=== PATIENT | female | born 1970 | race Caucasian/White ===

== ENCOUNTER → 2017-04-30 | Outpatient (CLI) | payer OTHER ==
[~2017-04-30] MED LIST: ALEN70; CEPH500 PO; CITA20; CLON.5; DOCU100 PO; DULO30; FENT25TP; FENT75TP; FENT75TP TOP; HYDACE5; OXYACE5T PO; OXYC10ER PO; PROM25 PO; RXPROM25 PO; TRAM50; TRAM50 PO; TRAZ100
[2017-04-30 13:28] LABS: Calcium, Urine 14.2 mg/dL (2.0-17.5); Calcium, Urine Calculation 326.6 mg/24hrs (42.0-353.0)
== END | disposition home or self-care (01) ==
LOC: LAB 06:50
PROVIDERS: Internal Medicine Endocrinology, Diabetes & Metabolism
DX: M81.0 Age-related osteoporosis without current pathological fracture (principal)
CPT/HCPCS: 81050; 82340

== ENCOUNTER → 2017-07-15 | Outpatient (CLI) | payer OTHER | LOC: LAB EV 14:15 | DX: R21 Rash and other nonspecific skin eruption (principal) | CPT/HCPCS: 87070; 87205 ==

== ENCOUNTER → 2017-09-09 | Outpatient (CLI) | payer OTHER ==
[2017-09-09 10:26] LABS: BASOPHILS ABSOLUTE AUTO 0.02 K/mm3 (0.00-0.23); BASOPHILS PERCENT AUTO 0 % (0-2); EOSINOPHILS ABSOLUTE AUTO 0.07 K/mm3 (0.00-0.68); EOSINOPHILS PERCENT AUTO 2 % (0-6); Hematocrit 41.7 % (33.0-51.0); Hemoglobin 14.1 g/dL (11.5-16.0); IMMATURE GRAN ABSOLUTE AUTO 0.01 K/mm3 (0.00-0.10); IMMATURE GRAN PERCENT AUTO 0 % (0-1); LYMPHOCYTES ABSOLUTE AUTO 1.22 K/mm3 (0.84-5.20); LYMPHOCYTES PERCENT AUTO 27 % (21-46); MONOCYTES ABSOLUTE AUTO 0.33 K/mm3 (0.16-1.47); MONOCYTES PERCENT AUTO 7 % (4-13); Mean Corpuscular HGB 33.4 pg (26.0-34.0); Mean Corpuscular HGB Conc 33.8 g/dL (31.5-36.5); Mean Corpuscular Volume 99 fL (80-100); Mean Platelet Volume 10.4 fL (9.1-12.4); NEUTROPHILS ABSOLUTE AUTO 2.84 K/mm3 (1.96-9.15); NEUTROPHILS PERCENT AUTO 63 % (41-73); Platelet Count 201 K/mm3 (150-400); RDW Coefficient Variation 13.2 % (11.7-14.2); RDW Standard Deviation 47.5 fL (35.1-46.3); Red Blood Cell Count 4.22 M/mm3 (3.80-5.20); White Blood Cell Count 4.49 K/mm3 (4.00-11.30)
[2017-09-09 10:59] LABS: Alanine Aminotransfer (ALT/SGP 30 U/L (12-78); Albumin, Blood 4.1 g/dL (3.4-5.0); Albumin/Globulin Ratio 1.1 (0.8-1.8); Alk Phos 60 U/L (40-126); Anion Gap 8 mmol/L (6-16); Aspartate Aminotrans (AST/SGOT 28 U/L (12-37); Bilirubin, Total 0.5 mg/dL (0.1-1.0); Blood Urea Nitrogen 15 mg/dL (8-24); Bun/Creatinine Ratio 18.3 (12.0-20.0); CO2, Blood 29 mmol/L (21-32); Calcium, Blood 9.2 mg/dL (8.5-10.1); Chloride, Blood 102 mmol/L (98-108); Creatinine, Blood 0.82 mg/dL (0.40-1.00); Globulin, Blood 3.7 g/dL (2.2-4.0); Glomerular Filtration Rate >60 (60-); Glucose, Blood 121 mg/dL (70-99); Potassium, Blood 4.5 mmol/L (3.5-5.5); Sodium, Blood 139 mmol/L (136-145); Total Protein, Blood 7.8 g/dL (6.4-8.2)
[2017-09-09 11:00] LABS: Troponin I <0.017 ng/mL (0.000-0.040)
[2017-09-09 11:57] LABS: Free Thyroxine 0.96 ng/dL (0.70-1.60); Thyroid Stimulating Hormone 1.377 uIU/mL (0.360-4.800)
== END | disposition home or self-care (01) ==
LOC: LAB SHORT 10:07 → LAB EV 10:07
PROVIDERS: Physician Assistant
DX: Z53.9 Procedure and treatment not carried out, unspecified reason (principal)
CPT/HCPCS: 80053; 82607; 82746; 84439; 84443; 84484; 85025; 85379

== ENCOUNTER 2018-08-05 09:56 | Day surgery (SDC) | payer OTHER ==
[~2018-08-05] VITALS: Ht 165.1 cm; Wt 73.4 kg
[~2018-08-05 09:56] MED LIST changes: +CLON2; +CYCL10; +Celexa10 MG; +DOXE10; +Imitrex100 MG; +THERA1 EACH
[2018-08-05] MEDS ORDERED: OXYC10ER (10:40)
== END 2018-08-05 11:37 | disposition home or self-care (01) ==
LOC: ORSCSDS 09:56
PROVIDERS: Internal Medicine Gastroenterology
PROC: 0DJD8ZZ Inspection of Lower Intestinal Tract, Via Natural or Artificial Opening Endoscopic (ICD-10-PCS; principal; 2018-08-05 11:15)
DX: K62.5 Hemorrhage of anus and rectum (principal); Z80.0 Family history of malignant neoplasm of digestive organs; F32.9 Major depressive disorder, single episode, unspecified; Z79.899 Other long term (current) drug therapy
CPT/HCPCS: J2704; J7120

== ENCOUNTER 2019-01-23 10:32 | Emergency (ER) | payer OTHER ==
[~2019-01-23] VITALS: Ht 165.1 cm; Wt 69.0 kg
[~2019-01-23 10:32] MED LIST changes: +OXYC10ER
[2019-01-23] MEDS ORDERED: Monodox100 MG PO (10:51)
[2019-01-23] MEDS ORDERED: IBUP800 PO (10:51)
== END 2019-01-23 10:57 | disposition home or self-care (01) ==
LOC: ER 10:32
DX: J02.9 Acute pharyngitis, unspecified (principal); L03.314 Cellulitis of groin; Z79.899 Other long term (current) drug therapy; Z87.891 Personal history of nicotine dependence
CPT/HCPCS: 99282

== ENCOUNTER → 2019-02-01 | Outpatient (CLI) | payer OTHER ==
[~2019-02-01] MED LIST changes: +IBUP800 PO; +Monodox100 MG PO
[2019-02-01 12:48] LABS: BASOPHILS ABSOLUTE AUTO 0.03 K/mm3 (0.00-0.23); BASOPHILS PERCENT AUTO 1 % (0-2); EOSINOPHILS ABSOLUTE AUTO 0.05 K/mm3 (0.00-0.68); EOSINOPHILS PERCENT AUTO 1 % (0-6); Hematocrit 40.9 % (33.0-51.0); Hemoglobin 13.2 g/dL (11.5-16.0); IMMATURE GRAN ABSOLUTE AUTO 0.02 K/mm3 (0.00-0.10); IMMATURE GRAN PERCENT AUTO 0 % (0-1); LYMPHOCYTES ABSOLUTE AUTO 2.21 K/mm3 (0.84-5.20); LYMPHOCYTES PERCENT AUTO 35 % (21-46); MONOCYTES ABSOLUTE AUTO 0.36 K/mm3 (0.16-1.47); MONOCYTES PERCENT AUTO 6 % (4-13); Mean Corpuscular HGB 32.9 pg (26.0-34.0); Mean Corpuscular HGB Conc 32.3 g/dL (31.5-36.5); Mean Corpuscular Volume 102 fL (80-100); Mean Platelet Volume 10.1 fL (9.1-12.4); NEUTROPHILS ABSOLUTE AUTO 3.63 K/mm3 (1.96-9.15); NEUTROPHILS PERCENT AUTO 58 % (41-73); Platelet Count 238 K/mm3 (150-400); RDW Coefficient Variation 13.2 % (11.7-14.2); RDW Standard Deviation 50.2 fL (35.1-46.3); Red Blood Cell Count 4.01 M/mm3 (3.80-5.20)
== END | disposition home or self-care (01) ==
LOC: LAB SHORT 11:54 → LAB 11:54
PROVIDERS: Family Medicine
DX: M25.572 Pain in left ankle and joints of left foot (principal)
CPT/HCPCS: 84550; 85025; 85651

== ENCOUNTER → 2019-05-18 | Outpatient (CLI) | payer OTHER ==
[2019-05-18 19:00] LABS: U Amphetamine Screen Not Detected; U Barbituate Screen Not Detected; U Benzodiazapine Screen DETECTED; U Buprenorphine Screen Not Detected; U Cannabinoids Screen DETECTED; U Cocaine Screen Not Detected; U Methadone Screen Not Detected; U Methamphetamine Screen Not Detected; U Opiates Screen Not Detected; U Phencyclidine Screen Not Detected
[2019-05-18 19:01] LABS: U Oxycodone Screen Not Detected; U Propoxyphene Screen Not Detected
== END ==
LOC: LAB SHORT 12:00 → LAB 12:00
PROVIDERS: Registered Nurse Psychiatric/Mental Health
DX: Z51.81 Encounter for therapeutic drug level monitoring (principal); Z79.899 Other long term (current) drug therapy

== ENCOUNTER 2020-04-17 07:24 | Emergency (ER) | payer OTHER ==
[~2020-04-17] VITALS: Ht 162.6 cm; Wt 71.2 kg
[~2020-04-17 07:24] MED LIST changes: +BRINTELLIX5 MG PO; +BUSP10 PO; +CEFP200 PO; +Flomax0.4 MG PO; +HYDPAM100 PO; +HYDR1TAB94 PO; +ONDA4ODT MM
[2020-04-17] MEDS ORDERED: Voltaren100 GM TOP (07:53)
[2020-04-17] MEDS ORDERED: ELIQUIS5 MG PO (07:58)
== END 2020-04-17 08:05 | disposition home or self-care (01) ==
LOC: ER 07:24
DX: M76.52 Patellar tendinitis, left knee (principal); M76.51 Patellar tendinitis, right knee; F17.210 Nicotine dependence, cigarettes, uncomplicated; Z79.01 Long term (current) use of anticoagulants; Z79.899 Other long term (current) drug therapy; Z86.718 Personal history of other venous thrombosis and embolism
CPT/HCPCS: 99283

== ENCOUNTER 2020-12-04 19:12 | Emergency (ER) | payer OTHER ==
[~2020-12-04] VITALS: Ht 165.1 cm; Wt 59.0 kg
[~2020-12-04 19:12] MED LIST changes: +ELIQUIS5 MG PO; +Voltaren100 GM TOP
== END 2020-12-05 00:43 | disposition home or self-care (01) ==
LOC: ER 19:12
DX: S01.312A Laceration without foreign body of left ear, initial encounter (principal); M25.512 Pain in left shoulder; F17.210 Nicotine dependence, cigarettes, uncomplicated; Z23 Encounter for immunization; W18.30XA Fall on same level, unspecified, initial encounter; Y92.828 Other wilderness area as the place of occurrence of the external cause
CPT/HCPCS: 12002; 70450; 72125; 73030; 90471; 90714; 93005; 93010; 96372; 99284-25; A9270; J1885

== ENCOUNTER 2021-01-27 09:50 | Day surgery (SDC) | payer OTHER ==
[~2021-01-27] VITALS: Ht 165.1 cm; Wt 57.1 kg
--- NOTE | 2021-01-27 11:53 | NUR ---
01/27/21 Latanya3 Aretha Little History, Chart, Medications and Allergies reviewed before start of procedure. Patient confirms NPO status and agrees with scheduled surgery. 3-LEAD EKG REVIEWED WITH PHYSICIAN PRIOR TO START OF PROCEDURE. MONITOR INTACT WITH CONTINUOUS PULSE OXIMETRY AND INTERMITTENT BP. PATIENT DETERMINED TO BE ASA APPROPRIATE FOR PROPOFOL SEDATION PRIOR TO START OF PROCEDURE BY DR. BROCK. NO HCG INDICATED PRE-PROCEDURE SECONDARY TO HX HYSTERECTOMY.
--- NOTE | 2021-01-27 13:00 | NUR ---
Patient up to Ambulate independently. Gait steady. Discharge instructions reviewed with patient. Patient verbalizes understanding. Copy given to patient to take home. Patient States Post-Procedure ride home has been arranged. Discharged via wheelchair to private car for ride home.
== END 2021-01-27 13:00 | disposition home or self-care (01) ==
LOC: ORSCMMR 09:50 → ORSCSDS 11:00 → ORSCMMR 13:00
PROVIDERS: Internal Medicine Gastroenterology
PROC: 0DB98ZX Excision of Duodenum, Via Natural or Artificial Opening Endoscopic, Diagnostic (ICD-10-PCS; principal; 2021-01-27 11:00)
PROC: 0DB68ZX Excision of Stomach, Via Natural or Artificial Opening Endoscopic, Diagnostic (ICD-10-PCS; principal; 2021-01-27 11:00)
PROC: 0DBE8ZX Excision of Large Intestine, Via Natural or Artificial Opening Endoscopic, Diagnostic (ICD-10-PCS; principal; 2021-01-27 11:00)
DX: R11.2 Nausea with vomiting, unspecified (principal); K52.9 Noninfective gastroenteritis and colitis, unspecified; R19.7 Diarrhea, unspecified; R63.4 Abnormal weight loss; K44.9 Diaphragmatic hernia without obstruction or gangrene; K29.70 Gastritis, unspecified, without bleeding; K57.30 Diverticulosis of large intestine without perforation or abscess without bleeding; K64.8 Other hemorrhoids; Z79.899 Other long term (current) drug therapy
CPT/HCPCS: 88305; 88342; J2405; J2704; J7120

== ENCOUNTER 2022-08-18 08:38 | Day surgery (SDC) | payer OTHER ==
[~2022-08-18] VITALS: Ht 160 cm; Wt 66.3 kg
[~2022-08-18 08:38] MED LIST changes: +CLON1 PO; +Cyclobenzaprine5 MG PO; +FLUTICASONE P15.8 M1; +HYDPAM50; +MIRT15 PO; +NAPR500 PO; +OMEP20ER PO; +PRAZ2 PO; +Percocet 5-3251 EACH PO; +TRAZ100 PO; +ZYRTEC10 M2 PO
--- NOTE | 2022-08-18 09:34 | NUR ---
08/18/22 0934 Sushma Bonner CALL LIGHT WITHIN REACH.
--- NOTE | 2022-08-18 10:55 | NUR ---
08/18/22 1055 Vikki Horner BLOCK COMPLETE AT OPSITE IN OR BY DR VASQUEZ AND DR KAMINSKI. PT AWAKE. TOLERATED WELL. VSS.
--- NOTE | 2022-08-18 12:16 | NUR ---
08/18/22 1216 Eda Hernandez PT PLACED ON 10L O2 VIA FT UPON ARRIVAL TO STEPDOWN FOR O2 SATS 90-94%. TRIAL OF O2 DOWN TO 5L VIA FT AND PT MAINTAINED O2 SATS AT 99-100. TRIAL ON RA AND SATS MAINTAINING 97-100%.
--- NOTE | 2022-08-18 13:03 | NUR ---
08/18/22 1303 STEFF SY PT C/O INCREASED NAUSEA. STILL HAS HEADACHE BUT STATES THAT SHE DOES NOT GET NAUSEATED BY H.A.- DENIES USE OF CAFFIENE
[2022-08-18 13:10] VITALS: BP 139/76
== END 2022-08-18 13:25 | disposition home or self-care (01) ==
LOC: ORSCSDS 08:38
PROVIDERS: Orthopaedic Surgery
PROC: 0PSB04Z Reposition Left Clavicle with Internal Fixation Device, Open Approach (ICD-10-PCS; principal; 2022-08-18 10:00)
DX: S42.032A Displaced fracture of lateral end of left clavicle, initial encounter for closed fracture (principal); F32.A Depression, unspecified; F41.9 Anxiety disorder, unspecified; M79.7 Fibromyalgia; K21.9 Gastro-esophageal reflux disease without esophagitis; F43.10 Post-traumatic stress disorder, unspecified; Z87.891 Personal history of nicotine dependence; Z79.899 Other long term (current) drug therapy
CPT/HCPCS: C1713; J0171; J0690; J1100; J1885; J2250; J2405; J2704; J2765; J2795; J3010; J7040; J7120

== ENCOUNTER 2022-09-15 11:49 | Emergency (ER) | payer OTHER ==
[~2022-09-15] VITALS: Ht 160 cm; Wt 62.6 kg
[2022-09-15 12:05] VITALS: BP 129/99
== END 2022-09-15 12:50 | disposition home or self-care (01) ==
LOC: ER 11:49
DX: M79.605 Pain in left leg (principal); F17.210 Nicotine dependence, cigarettes, uncomplicated; Z79.899 Other long term (current) drug therapy; Z88.8 Allergy status to other drugs, medicaments and biological substances
CPT/HCPCS: 93971

== ENCOUNTER 2022-09-30 10:49 | Day surgery (SDC) | payer OTHER ==
[2022-09-30] VITALS (9 sets, daily range): BP systolic 103–127; BP diastolic 66–86
[~2022-09-30] VITALS: Ht 160 cm; Wt 63.9 kg
[~2022-09-30 10:49] MED LIST changes: +BRINTELLIX20 MG PO; +CALCIUM PO; +Flonase 0.05% N16 GM; -HYDPAM50; +HYDPAM50 PO; +MAGNESIUM; +OXAYDO5 M1 PO; +VITAMIN D2
--- NOTE | 2022-09-30 15:17 | NUR ---
DISCHARGE NOTE PT A&OX4, BREATHING RA, NO DISTRESS, TOLERATING PO FLUIDS AND FOOD. BOYFRIEND AT BEDSIDE. PT CHATTING C STAFF. PAIN RX SENT WITH HOA TO PHARMACY PRIOR TO SURGERY. Discharge instructions reviewed with patient. Patient verbalizes understanding. Copy given to patient to take home.PT ABLE TO DRESS INDEPENDENTLY C RN AT BEDSIDE. PT AMBULATED TO INDEPENDENTLY C RN STANDBY AND VOIDED. Dressing to procedure site clean, dry, intact with no visible drainage, swelling, erythema or bruising noted.ICE APPLIED TO SURGICAL SITE. Discharged via wheelchair to private car for ride home.
== END 2022-09-30 15:15 | disposition home or self-care (01) ==
LOC: ORSCMMR 10:49 → ORD 13:15 → ORSCMMR 15:15
PROVIDERS: Orthopaedic Surgery
PROC: 0PPB04Z Removal of Internal Fixation Device from Left Clavicle, Open Approach (ICD-10-PCS; principal; 2022-09-30 12:30)
DX: T84.9XXA Unspecified complication of internal orthopedic prosthetic device, implant and graft, initial encounter (principal); Z96.9 Presence of functional implant, unspecified; Z79.899 Other long term (current) drug therapy
CPT/HCPCS: 87071; 87075; 87205; A9270; J0690; J1100; J1170; J2250; J2405; J2704; J2795; J3010; J7120

== ENCOUNTER 2023-03-17 10:31 | Emergency (ER) | payer OTHER ==
[~2023-03-17] VITALS: Ht 160 cm; Wt 63.5 kg
[2023-03-17] MEDS ORDERED: CALCITONIN-SAL3.7 M5 (11:07)
[2023-03-17] MEDS ORDERED: Ventolin/Prove6.7 GM INH (11:07)
[2023-03-17 12:45] LABS: BASOPHILS ABSOLUTE AUTO 0.03 K/mm3 (0.00-0.23); BASOPHILS PERCENT AUTO 1 % (0-2); EOSINOPHILS ABSOLUTE AUTO 0.03 K/mm3 (0.00-0.68); EOSINOPHILS PERCENT AUTO 1 % (0-6); Hematocrit 41.9 % (33.0-51.0); Hemoglobin 14.1 g/dL (11.5-16.0); IMMATURE GRAN ABSOLUTE AUTO 0.01 K/mm3 (0.00-0.10); IMMATURE GRAN PERCENT AUTO 0 % (0-1); LYMPHOCYTES ABSOLUTE AUTO 1.85 K/mm3 (0.84-5.20); LYMPHOCYTES PERCENT AUTO 30 % (21-46); MONOCYTES ABSOLUTE AUTO 0.42 K/mm3 (0.16-1.47); MONOCYTES PERCENT AUTO 7 % (4-13); Mean Corpuscular HGB 34.5 pg (26.0-34.0); Mean Corpuscular HGB Conc 33.7 g/dL (31.5-36.5); Mean Corpuscular Volume 102 fL (80-100); NEUTROPHILS PERCENT AUTO 62 % (41-73); Platelet Count 256 K/mm3 (150-400); RDW Coefficient Variation 12.6 % (11.7-14.2); RDW Standard Deviation 46.9 fL (35.1-46.3); Red Blood Cell Count 4.09 M/mm3 (3.80-5.20); White Blood Cell Count 6.14 K/mm3 (4.00-11.30)
[2023-03-17 13:03] VITALS: BP 132/78
[2023-03-17 13:10] LABS: Albumin, Blood 4.2 g/dL (3.4-5.0); Albumin/Globulin Ratio 1.1 (0.8-1.8); Bilirubin, Total 0.4 mg/dL (0.1-1.0); Calcium, Blood 9.5 mg/dL (8.5-10.1); Creatinine, Blood 0.69 mg/dL (0.40-1.00); Globulin, Blood 3.7 g/dL (2.2-4.0); Potassium, Blood 3.9 mmol/L (3.5-5.5); Total Protein, Blood 7.9 g/dL (6.4-8.2)
== END 2023-03-17 13:04 | disposition home or self-care (01) ==
LOC: ER 10:31
PROVIDERS: Emergency Medicine
DX: M79.662 Pain in left lower leg (principal); M79.602 Pain in left arm; Z88.8 Allergy status to other drugs, medicaments and biological substances; Z79.899 Other long term (current) drug therapy; F17.210 Nicotine dependence, cigarettes, uncomplicated
CPT/HCPCS: 80053; 85025; 93971; 96372; 99284-25; J1885

== ENCOUNTER → 2023-08-17 | Outpatient (CLI) | payer OTHER ==
[~2023-08-17] MED LIST changes: +CALCITONIN-SAL3.7 M5; +Ventolin/Prove6.7 GM INH
[2023-08-17 19:13] LABS: U Amphetamine Screen Not Detected; U Barbituate Screen Not Detected; U Benzodiazapine Screen Not Detected; U Buprenorphine Screen Not Detected; U Cannabinoids Screen DETECTED; U Cocaine Screen Not Detected; U Methadone Screen Not Detected; U Methamphetamine Screen Not Detected; U Opiates Screen DETECTED; U Oxycodone Screen DETECTED; U Phencyclidine Screen Not Detected
== END | disposition home or self-care (01) ==
LOC: LAB 17:26 → LAB SHORT 17:26
PROVIDERS: Internal Medicine Hematology & Oncology
DX: Z51.81 Encounter for therapeutic drug level monitoring (principal); Z79.899 Other long term (current) drug therapy

== ENCOUNTER → 2023-10-15 | Outpatient (CLI) | payer OTHER ==
[~2023-10-15] MED LIST changes: +MUPIROCIN1 G1 TOP
[2023-10-15 16:00] LABS: U Amphetamine Screen DETECTED; U Cannabinoids Screen DETECTED
[2023-10-15 16:01] LABS: U Barbituate Screen Not Detected; U Benzodiazapine Screen Not Detected; U Buprenorphine Screen Not Detected; U Cocaine Screen Not Detected; U Methadone Screen Not Detected; U Methamphetamine Screen Not Detected; U Opiates Screen Not Detected; U Oxycodone Screen DETECTED; U Phencyclidine Screen Not Detected
== END | disposition home or self-care (01) ==
LOC: LAB 13:19 → LAB SHORT 13:19
PROVIDERS: Internal Medicine Hematology & Oncology
DX: M54.6 Pain in thoracic spine (principal)

== ENCOUNTER 2023-11-13 08:52 | Emergency (ER) | payer OTHER ==
[~2023-11-13] VITALS: Ht 160 cm; Wt 56.2 kg
[~2023-11-13 08:52] MED LIST changes: -MUPIROCIN1 G1 TOP
[2023-11-13 09:11] VITALS: BP 130/93
[2023-11-13] MEDS ORDERED: MUPIROCIN1 G1 TOP (09:56)
== END 2023-11-13 10:06 | disposition home or self-care (01) ==
LOC: ER 08:52
DX: H00.034 Abscess of left upper eyelid (principal); F43.10 Post-traumatic stress disorder, unspecified; Z87.891 Personal history of nicotine dependence; Z79.899 Other long term (current) drug therapy; Z88.8 Allergy status to other drugs, medicaments and biological substances
CPT/HCPCS: 99283

== ENCOUNTER → 2023-12-10 | Outpatient (CLI) | payer OTHER ==
[~2023-12-10] MED LIST changes: +MUPIROCIN1 G1 TOP
[2023-12-10 11:45] LABS: U Amphetamine Screen DETECTED; U Cannabinoids Screen DETECTED
[2023-12-10 11:46] LABS: U Barbituate Screen Not Detected; U Benzodiazapine Screen Not Detected; U Buprenorphine Screen Not Detected; U Cocaine Screen Not Detected; U Methadone Screen Not Detected; U Methamphetamine Screen Not Detected; U Opiates Screen Not Detected; U Oxycodone Screen Not Detected; U Phencyclidine Screen Not Detected
== END ==
LOC: LAB SHORT 10:20 → LAB 10:20
PROVIDERS: Internal Medicine Hematology & Oncology
DX: Z51.81 Encounter for therapeutic drug level monitoring (principal); Z79.899 Other long term (current) drug therapy

== ENCOUNTER → 2023-12-15 | Outpatient (CLI) | payer OTHER | LOC: LAB SHORT 13:30 → LAB 13:30 | DX: D75.89 Other specified diseases of blood and blood-forming organs (principal) | CPT/HCPCS: 82607; 82746 ==

== ENCOUNTER → 2024-01-14 | Outpatient (CLI) | payer OTHER ==
[2024-01-14 12:35] LABS: U Amphetamine Screen DETECTED; U Barbituate Screen Not Detected; U Benzodiazapine Screen Not Detected; U Buprenorphine Screen Not Detected; U Cannabinoids Screen DETECTED; U Cocaine Screen Not Detected; U Methadone Screen Not Detected; U Methamphetamine Screen Not Detected; U Opiates Screen Not Detected; U Phencyclidine Screen Not Detected
[2024-01-14 12:37] LABS: U Oxycodone Screen DETECTED
== END ==
LOC: LAB 10:37 → LAB SHORT 10:37
PROVIDERS: Internal Medicine Hematology & Oncology
DX: M54.50 Low back pain, unspecified (principal); G89.4 Chronic pain syndrome

== ENCOUNTER → 2024-05-02 | Outpatient (CLI) | payer MEDICARE, OTHER | LOC: LAB SHORT 13:43 → LAB 13:43 | DX: R63.4 Abnormal weight loss (principal) | CPT/HCPCS: 85651; 86140 ==

== ENCOUNTER → 2024-05-12 | Outpatient (CLI) | payer MEDICARE, OTHER ==
[2024-05-12 11:40] LABS: U Amphetamine Screen DETECTED; U Barbituate Screen Not Detected; U Benzodiazapine Screen Not Detected; U Buprenorphine Screen Not Detected; U Cannabinoids Screen DETECTED; U Cocaine Screen Not Detected; U Methadone Screen Not Detected; U Methamphetamine Screen Not Detected; U Opiates Screen Not Detected; U Oxycodone Screen DETECTED; U Phencyclidine Screen Not Detected
== END | disposition home or self-care (01) ==
LOC: LAB SHORT 09:22 → LAB 09:22
PROVIDERS: Internal Medicine Hematology & Oncology
DX: Z51.81 Encounter for therapeutic drug level monitoring (principal); Z79.899 Other long term (current) drug therapy

== ENCOUNTER 2024-08-14 09:57 | Day surgery (SDC) | payer MEDICARE, OTHER ==
[~2024-08-14] VITALS: Ht 157.5 cm; Wt 46.3 kg
[~2024-08-14 09:57] MED LIST changes: +NS 500 ML IV ONE
[2024-08-14] MEDS ORDERED: FentaNYL Citrate 50 MCG/ML 2 ML Injection ONE (10:11)
[2024-08-14] MEDS ORDERED: Midazolam HCl 1MG / ML 2ML Vial ONE (10:12)
[2024-08-14] MEDS ORDERED: NS 500 ML IV ONE (10:55)
--- NOTE | 2024-08-14 11:02 | NUR ---
08/14/24 [address] JAMES WILL DO INJECTION BACK THERE
[2024-08-14] MEDS ORDERED: Ondansetron HCl 2 MG / ML 2ML Vial ONE (11:04)
[2024-08-14] MEDS ORDERED: Lidocaine 1%-Epineph 1:200000 30 ML SDV INJ ONE (11:14)
[2024-08-14] MEDS ORDERED: Sodium Bicarb 8.4% Inj 1 MEQ/ML 10ML Vial XX ONE (11:14)
[2024-08-14] MEDS ORDERED: propofoL 20 ML IV ONE (11:22)
--- NOTE | 2024-08-14 12:20 | NUR ---
08/14/24 1220 Sang Phelps PT INSTRUCTED MULTIPLE TIMES TO REMAIN NWB, PER DR. HOLGER Rai
[2024-08-14 12:21] VITALS: BP 111/67
== END 2024-08-14 12:05 | disposition home or self-care (01) ==
LOC: ORSCSDS 09:57
PROVIDERS: Orthopaedic Surgery
PROC: 0LN70ZZ Release Right Hand Tendon, Open Approach (ICD-10-PCS; principal; 2024-08-14 11:30)
PROC: 0HBQXZZ Excision of Finger Nail, External Approach (ICD-10-PCS; principal; 2024-08-14 11:30)
DX: M65.311 Trigger thumb, right thumb (principal); L60.9 Nail disorder, unspecified; K21.9 Gastro-esophageal reflux disease without esophagitis; F32.A Depression, unspecified; F43.10 Post-traumatic stress disorder, unspecified; Z87.891 Personal history of nicotine dependence; Z79.899 Other long term (current) drug therapy
CPT/HCPCS: J2250; J2405; J2704; J3010; J7040

== ENCOUNTER → 2024-08-31 | Outpatient (CLI) | payer MEDICARE, OTHER ==
[~2024-08-31] MED LIST changes: -NS 500 ML IV ONE
[2024-08-31 15:24] LABS: U Amphetamine Screen Not Detected; U Barbituate Screen Not Detected; U Benzodiazapine Screen Not Detected; U Buprenorphine Screen Not Detected; U Cannabinoids Screen Not Detected; U Cocaine Screen Not Detected; U Methadone Screen Not Detected; U Methamphetamine Screen Not Detected; U Opiates Screen Not Detected; U Oxycodone Screen DETECTED; U Phencyclidine Screen Not Detected
== END ==
LOC: LAB 11:36 → LAB SHORT 11:36
PROVIDERS: Internal Medicine Hematology & Oncology
DX: M54.50 Low back pain, unspecified (principal); Z79.899 Other long term (current) drug therapy

== ENCOUNTER → 2024-12-27 | Outpatient (CLI) | payer MEDICARE, OTHER ==
[2024-12-27 15:12] LABS: U Amphetamine Screen DETECTED; U Barbituate Screen Not Detected; U Benzodiazapine Screen DETECTED; U Buprenorphine Screen Not Detected; U Cannabinoids Screen DETECTED; U Cocaine Screen Not Detected; U Methadone Screen Not Detected; U Methamphetamine Screen Not Detected; U Opiates Screen DETECTED; U Oxycodone Screen Not Detected; U Phencyclidine Screen Not Detected
== END | disposition home or self-care (01) ==
LOC: LAB 13:34 → LAB SHORT 13:34
PROVIDERS: Internal Medicine Hematology & Oncology
DX: M25.9 Joint disorder, unspecified (principal); G89.4 Chronic pain syndrome; Z79.899 Other long term (current) drug therapy

== ENCOUNTER → 2025-02-14 | Outpatient (CLI) | payer MEDICARE, OTHER ==
[2025-02-14 12:06] LABS: U Amphetamine Screen DETECTED; U Barbiturate Screen Not Detected; U Benzodiazapine Screen Not Detected; U Buprenorphine Screen Not Detected; U Cannabinoids Screen DETECTED; U Cocaine Screen Not Detected; U Methadone Screen Not Detected; U Methamphetamine Screen Not Detected; U Opiates Screen Not Detected; U Oxycodone Screen DETECTED; U Phencyclidine Screen Not Detected
== END ==
LOC: LAB SHORT 10:42 → LAB 10:42
PROVIDERS: Internal Medicine Hematology & Oncology
DX: Z51.81 Encounter for therapeutic drug level monitoring (principal); Z79.899 Other long term (current) drug therapy

== ENCOUNTER → 2025-04-04 | Outpatient (CLI) | payer MEDICARE, OTHER ==
[2025-04-04 15:02] LABS: BASOPHILS ABSOLUTE AUTO 0.03 K/mm3 (0.00-0.23); BASOPHILS PERCENT AUTO 1 % (0-2); EOSINOPHILS ABSOLUTE AUTO 0.02 K/mm3 (0.00-0.68); EOSINOPHILS PERCENT AUTO 0 % (0-6); Hematocrit 38.9 % (33.0-51.0); Hemoglobin 13.0 g/dL (11.5-16.0); IMMATURE GRAN ABSOLUTE AUTO 0.01 K/mm3 (0.00-0.10); IMMATURE GRAN PERCENT AUTO 0 % (0-1); LYMPHOCYTES ABSOLUTE AUTO 2.20 K/mm3 (0.84-5.20); LYMPHOCYTES PERCENT AUTO 43 % (21-46); MONOCYTES ABSOLUTE AUTO 0.33 K/mm3 (0.16-1.47); MONOCYTES PERCENT AUTO 6 % (4-13); Mean Corpuscular HGB Conc 33.4 g/dL (31.5-36.5); Mean Corpuscular Volume 102 fL (80-100); NEUTROPHILS ABSOLUTE AUTO 2.55 K/mm3 (1.96-9.15); NEUTROPHILS PERCENT AUTO 50 % (41-73); NRBC ABSOLUTE 0.00 K/mm3 (0.00-0.02); NRBC Auto 0.0 /100 WBC (0.0-0.2); Platelet Count 208 K/mm3 (150-400); RDW Coefficient Variation 12.5 % (11.7-14.2); RDW Standard Deviation 47.0 fL (35.1-46.3)
[2025-04-04 19:29] LABS: Alanine Aminotransfer (ALT/SGP 31.0 U/L (12-78); Albumin, Blood 4.1 g/dL (3.4-5.0); Albumin/Globulin Ratio 1.4 (0.8-1.8); Anion Gap 5.0 mmol/L (3-11); Aspartate Aminotrans (AST/SGOT 20.0 U/L (12-37); Bilirubin, Total 0.4 mg/dL (0.1-1.0); Blood Urea Nitrogen 14.0 mg/dL (8-24); CO2, Blood 31.0 mmol/L (21-32); Calcium, Blood 9.0 mg/dL (8.5-10.1); Chloride, Blood 106.0 mmol/L (98-108); Creatinine, Blood 0.66 mg/dL (0.40-1.00); Globulin, Blood 2.9 g/dL (2.2-4.0); Glucose, Blood 92.0 mg/dL (70-99); Potassium, Blood 4.0 mmol/L (3.5-5.5); Sodium, Blood 138.0 mmol/L (136-145); Thyroid Stimulating Hormone 0.936 uIU/mL (0.360-4.800); Total Protein, Blood 7.0 g/dL (6.4-8.2)
[2025-04-07 10:57] LABS: DEAMIDATED GLIADIN PEPTIDE,IGA <0.72 FLU (0.00-4.99); TISSUE TRANSGLUTAMINAS TTG,IGA <1.02 FLU (0.00-4.99)
== END ==
LOC: LAB 13:42 → LAB SHORT 13:42
PROVIDERS: Internal Medicine
DX: R63.4 Abnormal weight loss (principal)
CPT/HCPCS: 80053; 84439; 84443; 85025; 86258; 86364

== ENCOUNTER → 2025-04-07 | Outpatient (CLI) | payer MEDICARE, OTHER ==
[2025-04-10 10:18] LABS: CALPROTECTIN,FECAL 29 ug/g (<=49)
[2025-04-10 20:17] LABS: PANCREATIC ELASTASE,FECAL 438 ug/g (>=100)
[2025-04-10 20:58] LABS: FAT, FECAL - NEUTRAL Normal (Normal); FAT, FECAL - SPLIT Normal (Normal)
== END ==
LOC: LAB 09:32 → LAB SHORT 09:32
PROVIDERS: Internal Medicine
DX: K52.9 Noninfective gastroenteritis and colitis, unspecified (principal)
CPT/HCPCS: 82653; 82705; 83993; 84999

== ENCOUNTER → 2025-04-07 | Outpatient (CLI) | payer MEDICARE, OTHER ==
[2025-04-07 15:53] LABS: C DIFFICILE DNA NEGATIVE (Negative)
== END ==
LOC: LAB 09:32 → LAB SHORT 09:32
PROVIDERS: Internal Medicine Hematology & Oncology
DX: R19.7 Diarrhea, unspecified (principal)
CPT/HCPCS: 87493